=== PATIENT | female | born 1985 | race American Indian/Alaskan Native ===

== ENCOUNTER → 2017-06-07 08:34 | Outpatient (CLI) | payer MEDICAID ==
[2014-01-23 22:29] VITALS: BMI 24.5
[~2017-06-07 08:34] MED LIST: IBUPROFEN600 MG PO; PERCOCET 5-3251 TAB PO; PRENATAL COMPLE1 TAB PO
== END | disposition home or self-care (01) ==
LOC: D.US 06-03 08:30
DX: R10.11 Right upper quadrant pain (principal)

== ENCOUNTER 2017-12-08 15:39 | Outpatient (CLI) | payer MEDICAID ==
[2014-01-23 22:29] VITALS: BMI 24.5
== END 2017-12-08 19:00 ==
LOC: D.LDO 15:39
DX: O26.893 Other specified pregnancy related conditions, third trimester (principal); Z3A.37 37 weeks gestation of pregnancy

== ENCOUNTER → 2017-12-15 14:02 | Outpatient (CLI) | payer MEDICAID ==
[2014-01-23 22:29] VITALS: BMI 24.5
[~2017-12-15 14:02] MED LIST changes: +PERCOCET 7.5/321 TAB PO
== END | disposition home or self-care (01) ==
LOC: D.LABREF 14:02 → D.LDO 14:02
DX: O26.899 Other specified pregnancy related conditions, unspecified trimester (principal); Z3A.00 Weeks of gestation of pregnancy not specified

== ENCOUNTER 2017-12-24 13:11 | Inpatient (IN) | payer MEDICAID ==
[2017-12-24] VITALS (9 sets, daily range): BP systolic 115–183; BP diastolic 65–86; Ht 160 cm; Wt 63.5 kg
[~2017-12-24] VITALS: Ht 160 cm; Wt 63.5 kg
--- NOTE | ~2017-12-24 | OP ---
PATIENT NAME: JOÃO BREWSTER MEDICAL RECORD: [id number] :89 LOCATION:[id number] ADMISSION DATE:12/24/17 SURGEON: TRE SINGH MD DATE OF OPERATION: 12/24/2017 PREOPERATIVE DIAGNOSES: 1. at 39 weeks gestation. 2. History of prior section. 3. Undesired fertility. POSTOPERATIVE DIAGNOSES: 1. at 39 weeks gestation. 2. History of prior section. 3. Undesired fertility. 4. Mother delivered via repeat section. 5. Severe pelvic adhesive disease. PROCEDURES: 1. Repeat section. 2. Bilateral tubal ligation using a [place] technique. SURGEON: Tre Singh MD DISH MAKER: Riley Casanova. ANESTHESIA: Spinal. ANESTHETIC: Spinal. FINDINGS: Dense adhesions of the anterior uterus to the abdominal wall. Tubes and ovaries are unremarkable. Infant is a 7 pound 3 ounce female with Apgars 9 and 9. Fluid is clear. SPECIMEN REMOVED: Placenta. SPECIMEN DISPOSITION: Discarded. ESTIMATED BLOOD LOSS: 800 cc. FLUIDS: 1200 mL lactated Ringer's. URINE OUTPUT: 200 cc of clear urine. COMPLICATIONS: None. DRAINS: Chiang to gravity. INDICATIONS: The patient is a 32-year-old G2, para 1 at 39 weeks gestation, who presents to labor and delivery with regular contractions. The patient has had prior section. She also has undesired fertility and risks and benefits of tubal ligation as well as alternatives have been discussed. DESCRIPTION OF PROCEDURE: After informed consent was assured, the patient was taken to the operating room where anesthetic was obtained without difficulty. The patient is now prepped and draped and the anesthetic is assessed. OPERATIVE REPORT [id number] JOÃO BREWSTER An incision was made over the old scar, carried down to the underlying layer of the fascia, which was opened in the midline and extended laterally with scissors. The rectus bellies were dissected superiorly and inferiorly and now in the midline using hemostats. Upon entering the abdomen, immediate adhesions were encountered. These dense adhesions were taken down both sharply and with Bovie. The bladder was mobilized. Once the dense adhesions were taken down, the bladder flap was developed and DeLee all-purpose retractor inserted. A low transverse hysterotomy was performed and the was delivered onto the abdomen atraumatically. Cord was doubly clamped and cut and was passed to the attendant after bulb suctioning. The placenta was delivered via Crede maneuver after obtaining cord blood sample. Uterus was exteriorized, cleared of all clot and debris and sewed in a running locked fashion with chromic stitch. A second chromic stitch was used to imbricate with a vertical mattress over the denuded region above the hysterotomy where the dense adhesions were attached to the uterus. After hemostasis is adequate, the uterus is deflected forward onto the DeLee retractor with gauze pressed against the incision sites and repaired areas. Attention was now directed to the tubes. Right tube was elevated and a window was made in the antimesenteric portion. Two ligatures were passed through here, secured proximally and distally and the intervening segment of tube excised. The ostium was cauterized. This was repeated on the contralateral side. Again, a window was developed. 2 stitches passed through and secured medial and laterally. The intervening segment of tube is removed and ostium cauterized. Uterus was replaced into the abdomen and the stumps inspected and found to be hemostatic. Avitene is now placed over the repair, the denuded areas were still having some bleeding, after inspection was found to be hemostatic. The peritoneum was reapproximated in the midline with a loose chromic stitch and the fascia was closed with looped PDS. Subcutaneous tissue was inspected. Bleeding vessels cauterized and the skin was reapproximated with a 3-0 Monocryl on a Alireza needle. Dermabond is applied. Sponge, lap, and needle counts correct times 2 at the close of this procedure. TRANSINT:[id number] Voice Confirmation ID: [id number] DOCUMENT ID: [id number] TRE SINGH MD at 1452 CC: [id number] DICTATION DATE: 12/24/171937 LPN PER DIEM: 12/24/172055 ADM IN [facility] [address] [place] [address]
--- NOTE | ~2017-12-24 | DS ---
PATIENT:JOÃO BREWSTER :89 MEDICAL RECORD: [id number] DISCHARGE SUMMARY ADMISSION DATE: 12/24/17 DISCHARGE DATE: 12/26/17 DATE OF ADMISSION: 12/24/2017 DATE OF DISCHARGE: 12/26/2017 ADMISSION DIAGNOSES: 1. Active labor at term. 2. History of prior section. 3. Unwanted fertility. DISCHARGE DIAGNOSES: 1. Mother delivered at term. 2. Prior section. 3. Unwanted fertility. PROCEDURES PERFORMED: 1. section. 2. tubal ligation. ATTENDING: Kennedy Singh MD HISTORY OF PRESENT ILLNESS: See the H&P in the chart. SUMMARY OF HOSPITALIZATION: The patient was admitted to the hospital and underwent procedures without difficulty. At the time of discharge, she is doing well and tolerating regular diet. The patient is voiding and incision is clean, dry, and intact. Discharge medications include Percocet and [id number] Motrin. The patient has been asked to follow up in 2 weeks at [facility]. Standard precautions have been reviewed. TRANSINT:[id number] Voice Confirmation ID: [id number] DOCUMENT ID: [id number] KENNEDY SINGH MD at 1329 CC: [id number] DICTATION DATE: 12/26/17 0947 STORE DELI MANAGER: 12/26/172009 DIS IN 12/26/17 [facility] [address] [place] [address]
[~2017-12-24 13:11] MED LIST changes: -PERCOCET 7.5/321 TAB PO
[2017-12-24 15:09] LABS: HEMATOCRIT 35.4 % (36.0-48.0); HEMOGLOBIN 11.7 g/dL (12-16); MCH 29.2 pg (26.0-34.0); MCHC 33.1 g/dL (31.0-37.0); MCV 88.3 fL (80.0-100.0); RBC 4.01 10x6/uL (4.00-5.40); RDW 13.2 % (11.5-14.5); WBC 10.6 10x3/uL (4.8-10.8)
[2017-12-25] VITALS (9 sets, daily range): BP systolic 105–133; BP diastolic 61–77
[2017-12-25 05:53] LABS: BASOPHILS 0.1 % (0-2); EOSINOPHILS 0.3 % (0-7); HEMATOCRIT 30.1 % (36.0-48.0); HEMOGLOBIN 9.9 g/dL (12-16); IMMATURE GRANULOCYTES 0.5 % (0-5); LYMPHOCYTES 18.8 % (15-50); MCHC 32.9 g/dL (31.0-37.0); MCV 88.3 fL (80.0-100.0); MEAN PLATELET VOLUME 11.1 fL (7.4-10.4); MONOCYTES 4.6 % (2-11); NEUTROPHILS 75.7 % (40-80); RBC 3.41 10x6/uL (4.00-5.40); RDW 13.3 % (11.5-14.5); WBC 10.5 10x3/uL (4.8-10.8)
[2017-12-25 05:54] LABS: PLATELET COUNT 121 10x3/uL (130-400)
[2017-12-25 07:25] LABS: RAPID PLASMA REAGIN Non Reactive (Non Reactive)
[2017-12-26 09:08] VITALS: BP 111/70
[2017-12-26] MEDS ORDERED: PERCOCET 7.5/321 TAB PO (09:57)
== END 2017-12-26 19:30 | disposition home or self-care (01) | DRG 785 ==
LOC: D.LDO 13:11 → D.LD 14:39
PROVIDERS: Obstetrics & Gynecology
PROC: 10D00Z1 Extraction of Products of Conception, Low, Open Approach (ICD-10-PCS; principal; 2017-12-24 17:00)
PROC: 0UB70ZZ Excision of Bilateral Fallopian Tubes, Open Approach (ICD-10-PCS; 2017-12-24 17:00)
DX: O34.211 Maternal care for low transverse scar from previous cesarean delivery (principal); Z3A.39 39 weeks gestation of pregnancy; Z37.0 Single live birth; Z30.2 Encounter for sterilization; Z30.09 Encounter for other general counseling and advice on contraception; O99.89 Other specified diseases and conditions complicating pregnancy, childbirth and the puerperium; N73.6 Female pelvic peritoneal adhesions (postinfective)